=== PATIENT | female | born 1970 | race Caucasian/White ===

== ENCOUNTER 2018-10-16 06:58 | Emergency (ER) | payer MEDICAID ==
[~2018-10-16] VITALS: Ht 160 cm; Wt 49.0 kg
[2018-10-16 07:00] VITALS: BP 142/89
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
--- NOTE | 2018-10-16 07:30 | NUR ---
Pt to radiology via [facility] .
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
--- NOTE | 2018-10-16 08:20 | NUR ---
Spoke w/ pt advocate at [facility]. They agree to see pt today & assist w/ placement. Will provide taxi voucher.
--- NOTE | 2018-10-16 08:35 | NUR ---
Patient given discharge instructions and they have confirmed that they understand the instructions. Patient ambulatory with steady gait. Snacks given
== END 2018-10-16 08:48 | disposition home or self-care (01) ==
LOC: ED 07:52
DX: S20.211A Contusion of right front wall of thorax, initial encounter (principal); F90.9 Attention-deficit hyperactivity disorder, unspecified type; Y04.8XXA Assault by other bodily force, initial encounter; Y93.89 Activity, other specified; Y92.410 Unspecified street and highway as the place of occurrence of the external cause; Y92.89 Other specified places as the place of occurrence of the external cause
CPT/HCPCS: 71046; 99283

== ENCOUNTER 2020-07-30 14:09 | Emergency (ER) | payer MEDICAID ==
[~2020-07-30] VITALS: Ht 157.5 cm; Wt 56.5 kg
[2020-07-30] MEDS ORDERED: LORazepam 1MG TABLET PO ONE (14:30)
[2020-07-30] MEDS ORDERED: ALPR0.5T3 PO (14:31)
[2020-07-30] MEDS ORDERED: DEXT10TA7 PO (14:33)
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
[2020-07-30] MEDS ORDERED: LORazepam 1MG TABLET ONE (14:38)
--- NOTE | 2020-07-30 14:40 | NUR ---
PT IS EXREMELY UPSET AND CRYING CONTINUOUSLY. MEDICATED PER EMAR.
--- NOTE | 2020-07-30 15:26 | NUR ---
[employer] HERE TO SPEAK WITH PATIENT
--- NOTE | 2020-07-30 15:57 | NUR ---
PATIENT SPEAKING WITH [employer]
[2020-07-30 16:46] VITALS: BP 130/93
--- NOTE | 2020-07-30 17:07 | NUR ---
Provided patient with meal, pants and underwear. Advised she will be discharged soon and to start getting dressed.
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
== END 2020-07-30 17:36 | disposition home or self-care (01) ==
LOC: ED 16:28
DX: S82.201A Unspecified fracture of shaft of right tibia, initial encounter for closed fracture (principal); R07.89 Other chest pain; Y04.8XXA Assault by other bodily force, initial encounter; Y93.89 Activity, other specified; Y92.89 Other specified places as the place of occurrence of the external cause; Y99.8 Other external cause status
CPT/HCPCS: 29505; 71045; 99284